=== PATIENT | male | born 1940 | race Caucasian/White ===

== ENCOUNTER 2017-05-10 10:57 | Emergency (ER) | payer MEDICARE, MEDICAID ==
[2017-05-10 11:13] VITALS: BP 166/79
[2017-05-10] MEDS ORDERED: Lactated Ringers 1,000 ML IV SCH (11:45)
[2017-05-10] MEDS ORDERED: Sodium Chloride 0.9% 10 ML Syringe FLUSH PRN (11:45)
--- NOTE | 2017-05-10 11:49 | EDM.PDOC ---
ED HPI GENERAL MEDICAL PROBLEM - General Chief Complaint: ENT Problem Stated Complaint: THROAT ISSUES Time Seen by Provider: 05/10/17 11:40 Source of Information: Reports: Patient, RN Notes Reviewed History Limitations: Reports: No Limitations - History of Present Illness INITIAL COMMENTS - FREE TEXT/NARRATIVE: 77-year-old gentleman presents to the emergency department today with complaint of difficulty swallowing, he has had ongoing pain for the last month it has progressively gotten worse. He believes he accidentally swallowed a chicken bone about one month ago was caught in his throat took some bread which did improve it however one week ago he dislodged a ball of what he describes as thick purulent material that did contain a bone he has coughed up some blood as well, complains of chills at night - Related Data Allergies Allergy/AdvReac Type Severity Reaction Status Date / Time No Known Allergies Allergy Verified 12/17/14 11:49 Home Meds: Home Meds Furosemide 20 mg PO DAILY 08/08/14 [History] Lisinopril 40 mg PO DAILY 08/08/14 [History] Potassium Chloride 10 meq PO DAILY 08/08/14 [History] Simvastatin 40 mg PO BEDTIME 08/08/14 [History] amLODIPine Besylate [Amlodipine Besylate] 10 mg PO DAILY 08/08/14 [History] guanFACINE HCl [Guanfacine HCl] 2 mg PO DAILY 08/08/14 [History] Past Medical History Other Musculoskeletal History: cracked top vertebrate as child - Past Surgical History Other HEENT Surgeries/Procedures: eyelids done Social & Family History - Tobacco Use Smoking Status *Q: Never Smoker Second Hand Smoke Exposure: No - Recreational Drug Use Recreational Drug Use: No ED ROS GENERAL - Review of Systems Review Of Systems: See Below Constitutional: Reports: Chills HEENT: Reports: Throat Pain, Throat Swelling Respiratory: Reports: No Symptoms Cardiovascular: Reports: No Symptoms GI/Abdominal: Reports: No Symptoms : Reports: No Symptoms Musculoskeletal: Reports: No Symptoms Skin: Reports: No Symptoms Neurological: Reports: No Symptoms ED EXAM, GENERAL - Physical Exam Exam: See Below Exam Limited By: No Limitations General Appearance: Alert, WD/WN, No Apparent Distress Eye Exam: Bilateral Eye: Normal Inspection Ears: Normal External Exam, Normal Canal, Hearing Grossly Normal, Normal TMs Nose: Normal Inspection, Normal Mucosa, No Blood Throat/Mouth: Normal Inspection, Normal Lips, Normal Teeth, Normal Gums, Normal Oropharynx, Normal Voice, No Airway Compromise Head: Atraumatic, Normocephalic Neck: Normal Inspection, Supple, Non-Tender, Full Range of Motion Respiratory/Chest: No Respiratory Distress, Lungs Clear, Normal Breath Sounds, No Accessory Muscle Use Cardiovascular: Regular Rate, Rhythm, No Murmur Course - Vital Signs Last Recorded V/S: Last Vital Signs Temp 96.9 F 05/10/17 11:23 Pulse 92 05/10/17 11:23 Resp 16 05/10/17 11:23 BP 166/79 H 05/10/17 11:23 Pulse Ox 95 05/10/17 11:23 - Orders/Labs/Meds Orders: Active Orders 24 hr Category Date Time Status Peripheral IV Care [RC] . DIRECTED Care 05/10/17 11:46 Active Soft Tissue Neck w Cont [CT] Stat Exams 05/10/17 11:46 Taken Iopamidol [Isovue-300 (61%)] Med 05/10/17 11:52 Active 100 ml IV . DIRECTED PRN Lactated Ringers [Ringers, Lactated] 1,000 ml Med 05/10/17 11:45 Active IV ASDIRECTED Sodium Chloride 0.9% [Normal Saline] 74 ml Med 05/10/17 12:00 Active IV ASDIRECTED Sodium Chloride 0.9% [Saline Flush] Med 05/10/17 11:45 Active 10 ml FLUSH ASDIRECTED PRN Peripheral IV Insertion Adult [OM.PC] Stat Oth 05/10/17 11:45 Ordered Medication Orders Lactated Ringer's (Ringers, Lactated) 1,000 mls @ 500 mls/hr IV ASDIRECTED MICHAEL Last Admin: 05/10/17 12:49 Dose: 500 mls/hr Sodium Chloride (Normal Saline) 74 mls @ 3 mls/sec IV ASDIRECTED MICHAEL Last Admin: 05/10/17 12:34 Dose: 3 mls/sec Iopamidol (Isovue-300 (61%)) 100 ml IV . DIRECTED PRN PRN Reason: RADIOLOGY EXAM Stop: 05/11/17 11:53 Last Admin: 05/10/17 12:34 Dose: 100 ml Sodium Chloride (Saline Flush) 10 ml FLUSH ASDIRECTED PRN PRN Reason: Keep Vein Open Last Admin: 05/10/17 12:49 Dose: 10 ml Labs: Laboratory Tests 05/10/17 05/10/17 05/10/17 Range/Units 11:45 11:45 11:45 WBC 8.7 (4.5-11.0) K/uL RBC 5.03 (4.30-5.90) M/uL Hgb 15.6 H (12.0-15.0) g/dL Hct 45.4 (40.0-54.0) % MCV 90 (80-98) fL MCH 31 (27-31) pg MCHC 34 (32-36) % Plt Count 239 (150-400) K/uL Neut % (Auto) 59 (36-66) % Lymph % (Auto) 30 (24-44) % Haakon % (Auto) 9 H (2-6) % Eos % (Auto) 2 (2-4) % Baso % (Auto) 0 (0-1) % Sodium 140 (140-148) mmol/L Potassium 4.0 (3.6-5.2) mmol/L Chloride 103 (100-108) mmol/L Carbon Dioxide 28 (21-32) mmol/L Anion Gap 9.3 (5.0-14.0) mmol/L BUN 16 (7-18) mg/dL Creatinine 1.2 (0.8-1.3) mg/dL Est Cr Clr Drug Dosing 49.08 mL/min Estimated GFR (MDRD) 59 L (>60) Glucose 119 H (74-106) mg/dL Lactic Acid 1.3 (0.4-2.0) mmol/L Calcium 9.5 (8.5-10.1) mg/dL Total Bilirubin 0.4 (0.2-1.0) mg/dL AST 28 (15-37) U/L ALT 58 (12-78) U/L Alkaline Phosphatase 77 (46-116) U/L C-Reactive Protein 0.00 (0.0-0.3) mg/dL Total Protein 8.2 (6.4-8.2) g/dL Albumin 4.3 (3.4-5.0) g/dL Globulin 3.9 H (2.3-3.5) g/dL Albumin/Globulin Ratio 1.1 L (1.2-2.2) TSH, Ultra Sensitive 3.990 H (0.358-3.740) uIU/mL Meds: Medications Generic Name Dose Route Start Last Admin Trade Name Nathanael PRN Reason Stop Dose Admin Lactated Ringer's 1,000 mls @ 500 mls/hr 05/10/17 11:45 05/10/17 12:49 Ringers, Lactated IV 500 mls/hr ASDIRECTED MICHAEL Administration Sodium Chloride 74 mls @ 3 mls/sec 05/10/17 12:00 05/10/17 12:34 Normal Saline IV 3 mls/sec ASDIRECTED MICHAEL Administration Iopamidol 100 ml 05/10/17 11:52 05/10/17 12:34 Isovue-300 (61%) IV 05/11/17 11:53 100 ml . DIRECTED PRN Administration RADIOLOGY EXAM Sodium Chloride 10 ml 05/10/17 11:45 05/10/17 12:49 Saline Flush FLUSH 10 ml ASDIRECTED PRN Administration Keep Vein Open Departure - Departure Time of Disposition: 13:30 Disposition: Home, Self-Care 01 Condition: Good Clinical Impression: Sore throat - Discharge Information Referrals: Nico Currie MD [Primary Care Provider] - Forms: ED Department Discharge Additional Instructions: Please follow-up with your primary care provider next week for further evaluation with possible referral to ear nose and throat, call return to the emergency department worsening of symptoms - My Orders Last 24 Hours: My Active Orders 05/10/17 11:45 Lactated Ringers [Ringers, Lactated] 1,000 ml IV ASDIRECTED Sodium Chloride 0.9% [Saline Flush] 10 ml FLUSH ASDIRECTED PRN Peripheral IV Insertion Adult [OM.PC] Stat 05/10/17 11:46 Peripheral IV Care [RC] . DIRECTED Soft Tissue Neck w Cont [CT] Stat 05/10/17 11:52 Iopamidol [Isovue-300 (61%)] 100 ml IV . DIRECTED PRN 05/10/17 12:00 Sodium Chloride 0.9% [Normal Saline] 74 ml IV ASDIRECTED - Assessment/Plan Last 24 Hours: My Active Orders 05/10/17 11:45 Lactated Ringers [Ringers, Lactated] 1,000 ml IV ASDIRECTED Sodium Chloride 0.9% [Saline Flush] 10 ml FLUSH ASDIRECTED PRN Peripheral IV Insertion Adult [OM.PC] Stat 05/10/17 11:46 Peripheral IV Care [RC] . DIRECTED Soft Tissue Neck w Cont [CT] Stat 05/10/17 11:52 Iopamidol [Isovue-300 (61%)] 100 ml IV . DIRECTED PRN 05/10/17 12:00 Sodium Chloride 0.9% [Normal Saline] 74 ml IV ASDIRECTED Plan: Assessment Acuity = acute Site and laterality = throat pain and swelling Etiology = probably related to foreign body with post inflammation Manifestations = none Location of injury = Home Lab values = CBC, BMP unremarkable CT scan: Impression: 1. A 1-2 mm hyperdense focus in the inferior left palatine tonsil may be secondary to prior inflammation versus tiny residual foreign body. 2. There is no airway narrowing. 3. No air in the parapharyngeal or paraesophageal soft tissues to suggest perforation. 4. No fluid collections identified. Plan Recommend symptomatic care, follow up with primary care in the next 3-5 days for reevaluation with possible referral to ear nose and throat for further evaluation This note was dictated using [employer] voice recognition software please call with any questions on syntax or juan.
[2017-05-10] MEDS ORDERED: Iopamidol 612 MG/ML 100 ML Bottle IV PRN (11:52)
== END 2017-05-10 13:42 | disposition home or self-care (01) ==
LOC: JP.ED 10:57
DX: J02.9 Acute pharyngitis, unspecified (principal); Z79.899 Other long term (current) drug therapy
CPT/HCPCS: 36415; 70491; 80053; 83605; 84443; 85025; 86140; 96360; 96361; 99283; 99284; J7030; J7050; J7120; Q9967

== ENCOUNTER 2017-05-23 07:17 | Emergency (ER) | payer MEDICAID, MEDICARE ==
[2017-05-23 07:58] VITALS: BP 214/86
--- NOTE | 2017-05-23 08:07 | EDM.PDOC ---
ED HPI GENERAL MEDICAL PROBLEM - General Chief Complaint: Abdominal Pain Stated Complaint: ABDOMINAL PAIN Time Seen by Provider: 05/23/17 07:58 Source of Information: Reports: Patient, Family, RN Notes Reviewed History Limitations: Reports: No Limitations - History of Present Illness INITIAL COMMENTS - FREE TEXT/NARRATIVE: 77-year-old gentleman presents to the emergency department today with complaint of abdominal pain, he states the pain started last night will wax and wane at this moment he is pain-free, he had pain similar to this about a month and a half ago which resolved on its own. He denies any flatus use positive bowel movement last night does feel nauseated with the pain no shortness of breath no chest pain. No history of abdominal surgeries - Related Data Allergies Allergy/AdvReac Type Severity Reaction Status Date / Time No Known Allergies Allergy Verified 12/17/14 11:49 Home Meds: Home Meds Furosemide 20 mg PO DAILY 08/08/14 [History] Lisinopril 40 mg PO DAILY 08/08/14 [History] Potassium Chloride 10 meq PO DAILY 08/08/14 [History] Simvastatin 40 mg PO BEDTIME 08/08/14 [History] amLODIPine Besylate [Amlodipine Besylate] 10 mg PO DAILY 08/08/14 [History] guanFACINE HCl [Guanfacine HCl] 2 mg PO DAILY 08/08/14 [History] Past Medical History Other Musculoskeletal History: cracked top vertebrate as child - Past Surgical History Other HEENT Surgeries/Procedures: eyelids done Social & Family History - Tobacco Use Smoking Status *Q: Never Smoker Second Hand Smoke Exposure: No - Recreational Drug Use Recreational Drug Use: No ED ROS GENERAL - Review of Systems Review Of Systems: See Below Constitutional: Reports: No Symptoms HEENT: Reports: No Symptoms Respiratory: Reports: No Symptoms Cardiovascular: Reports: No Symptoms GI/Abdominal: Reports: Abdominal Pain, Nausea. Denies: Flatus, Vomiting : Reports: No Symptoms Musculoskeletal: Reports: No Symptoms Skin: Reports: No Symptoms Neurological: Reports: No Symptoms ED EXAM, GI/ABD - Physical Exam Exam: See Below Text/Narrative:: General: Male, not in any distress, alert and oriented x3 HEENT: head is atraumatic normocephalic, eyes pupils equal round reactive to light, sclera clear no conjunctivitis appreciated. Ears tympanic membranes clear and escamilla landmarks and light reflex are present bilaterally canals are clear. Nose no septal deviation, nares are clear, no blood present. Mouth mucosa is moist and pink no erythema or exudate noted in soft palate, tongue is midline uvula is midline, dentures in place. Neck: Supple no thyromegaly no tracheal deviation. Nodes: Cervical nodes subclavicular nodes nontender no palpable lymphadenopathy noted. Lungs: clear to auscultation bilaterally with symmetrical respirations, no adventitious noise appreciated. CV: Regular rate and rhythm S1 and S2 appreciated no murmurs rubs or gallops noted. Abdomen: Soft, obese, nontender, no palpable masses or organomegaly appreciated , no distention no guarding bowel sounds are present, . Neuro: Cranial nerves II through XII grossly intact Skin: Warm and dry, intact Extremities: No lower extremity edema appreciated, Course - Vital Signs Last Recorded V/S: Last Vital Signs Temp 96.1 F 05/23/17 07:41 Pulse 82 05/23/17 07:41 Resp 18 05/23/17 07:41 BP 214/86 H 05/23/17 07:41 Pulse Ox 95 05/23/17 07:41 - Orders/Labs/Meds Orders: Active Orders 24 hr Category Date Time Status Abdomen 1V Upright [CR] Stat Exams 05/23/17 08:53 Taken Labs: Laboratory Tests 05/23/17 05/23/17 05/23/17 Range/Units 08:10 08:10 08:10 WBC 8.4 (4.5-11.0) K/uL RBC 4.67 (4.30-5.90) M/uL Hgb 14.5 (12.0-15.0) g/dL Hct 42.6 (40.0-54.0) % MCV 91 (80-98) fL MCH 31 (27-31) pg MCHC 34 (32-36) % Plt Count 233 (150-400) K/uL Neut % (Auto) 58 (36-66) % Lymph % (Auto) 30 (24-44) % Sac % (Auto) 9 H (2-6) % Eos % (Auto) 2 (2-4) % Baso % (Auto) 0 (0-1) % Sodium 141 (140-148) mmol/L Potassium 4.6 (3.6-5.2) mmol/L Chloride 103 (100-108) mmol/L Carbon Dioxide 27 (21-32) mmol/L Anion Gap 11.2 (5.0-14.0) mmol/L BUN 20 H (7-18) mg/dL Creatinine 1.2 (0.8-1.3) mg/dL Est Cr Clr Drug Dosing 49.08 mL/min Estimated GFR (MDRD) 59 L (>60) Glucose 118 H (74-106) mg/dL Lactic Acid 1.6 (0.4-2.0) mmol/L Calcium 9.3 (8.5-10.1) mg/dL Total Bilirubin 0.4 (0.2-1.0) mg/dL AST 21 (15-37) U/L ALT 45 (12-78) U/L Alkaline Phosphatase 88 (46-116) U/L Troponin I < 0.017 (0.000-0.056) ng/mL Total Protein 7.8 (6.4-8.2) g/dL Albumin 4.4 (3.4-5.0) g/dL Globulin 3.4 (2.3-3.5) g/dL Albumin/Globulin Ratio 1.3 (1.2-2.2) Lipase 90 (73-393) U/L Departure - Departure Time of Disposition: 09:29 Disposition: Home, Self-Care 01 Condition: Good Clinical Impression: Functional constipation - Discharge Information Referrals: Nico Currie MD [Primary Care Provider] - Forms: ED Department Discharge Additional Instructions: Try the MiraLAX one capful per day until loose stools, Please followup with your primary care provider in 3-5 days if not better, please call return to the emergency department with worsening of symptoms. - My Orders Last 24 Hours: My Active Orders 05/23/17 08:53 Abdomen 1V Upright [CR] Stat - Assessment/Plan Last 24 Hours: My Active Orders 05/23/17 08:53 Abdomen 1V Upright [CR] Stat Plan: Assessment Acuity = acute Site and laterality = functional constipation Etiology = slow transit time Manifestations = none Location of injury = Home Lab values = CBC, CMP, troponin all negative x-ray does show large amount of stool and gas official read radiology is pending Plan Recommend use of MiraLAX daily, follow-up primary care 3-5 days for reevaluation This note was dictated using [employer] voice recognition software please call with any questions on syntax or juan.
--- NOTE | 2017-05-25 09:21 | CR ---
Abdomen 1V Upright INDICATION: pain FINDINGS: Normal bowel gas pattern. No evidence for small bowel obstruction or free air. Scattered st ool and gas throughout normal caliber colon. Degenerative changes in the spine.
== END 2017-05-23 10:01 | disposition home or self-care (01) ==
LOC: JP.ED 07:17
DX: K59.04 Chronic idiopathic constipation (principal); Z79.899 Other long term (current) drug therapy
CPT/HCPCS: 36415; 74018; 74018-26; 80053; 83605; 83690; 84484; 85025; 99284

== ENCOUNTER 2020-11-29 07:12 | Day surgery (SDC) | payer MEDICARE ==
[2020-11-29] MEDS ORDERED: Dextrose 5%-Lactated Ringers 1,000 ML IV SCH (07:30)
[2020-11-29] MEDS ORDERED: Propofol 200 MG/20 ML SDV ONE (08:19)
[2020-11-29] MEDS ORDERED: fentaNYL 100 MCG/2 ML SDV ONE (08:19)
[2020-11-29 09:27] VITALS: PULSE 60
[2020-11-29 10:14] VITALS: BP 140/68
--- NOTE | 2020-12-14 12:29 | OR ---
DATE OF PROCEDURE: 11/29/2020 SURGEON: Augie Bhardwaj MD PREOPERATIVE DIAGNOSES: 1. 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 2. History of gastroesophageal reflux disease. POSTOPERATIVE DIAGNOSES: Upper endoscopy showin. No gross inflammation of the laryngopharynx but a noticeably elongated right pyriform sinus. 2. 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 3. Mild antral gastritis and proximal duodenitis. OPERATIVE PROCEDURE: Esophagogastroduodenoscopy with: 1. Biopsy of esophagogastric junction for histologic evaluation. 2. Biopsies of antrum for CLOtest. ANESTHESIA: IV sedation. INDICATION FOR PROCEDURE: This is an 80-year-old male, presenting with some laryngopharyngeal dysphagia and a sense of chronic irritation on the right side of the pharynx. He does have a longstanding history of gastroesophageal reflux disease and has been on Protonix long-term. Plan is to proceed with upper GI endoscopy with biopsies as indicated. Potential risks including bleeding and perforation were discussed, and the patient wishes to proceed. DETAILS OF PROCEDURE: The patient was taken to the operating room and placed in a left lateral decubitus position. IV sedation was administered, after which the upper GI endoscope was passed orally through the length of the esophagus into the stomach with retroflexion view of the fundus, thereafter through the pyloric channel to the junction of the third and fourth portions of the duodenum. Findings included no gross inflammation within the laryngopharynx. It was notable, however, that the patient had a quite elongated right pyriform sinus that this appeared to be somewhat unusual or abnormal, was confirmed by on review of the endoscopic findings. Within the esophagus, there was some moderate inflammation at the distal esophagus with a small hiatal hernia. 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 No plaquing or stricturing were noted. Within the stomach, there was some mild patchy redness in the antrum which extended into the duodenal bulb. No erosions or ulcers were seen beyond the duodenal bulb where findings normalized. At this point, biopsies were taken from the antrum and sent for CLOtest for H pylori and multiple biopsies were then obtained from esophagogastric junction and sent for histologic evaluation. Minimal bleeding from the biopsy sites was seen and the procedure was then concluded. At this point, the plan will be to have the patient continue the Protonix. We will also obtain an x-ray swallow study with speech pathology consultation to evaluate the sense of irritation and what appeared to be somewhat elongated right pyriform sinus. The patient will have to see Tova Maria PA-C, a few days after the speech pathology consult has been obtained. Augie Bhardwaj MD /[id number]
== END 2020-11-29 10:10 | disposition home or self-care (01) ==
LOC: JP.SDS 07:12
PROVIDERS: ATTEND Surgery
DX: K20.0 Eosinophilic esophagitis (principal); K21.9 Gastro-esophageal reflux disease without esophagitis; K29.90 Gastroduodenitis, unspecified, without bleeding
CPT/HCPCS: 87081; 88305; J2704; J3010; J7121

== ENCOUNTER 2024-05-18 08:56 | Emergency (ER) | payer MEDICARE ==
[2024-05-18] MEDS: Carbamide Peroxide 6.5% Otic Soln 15 ML Bottle EARRT ONE (10:16)
[2024-05-18 11:48] VITALS: BP 156/56; PULSE 98
== END 2024-05-18 11:43 | disposition home or self-care (01) ==
LOC: JP.ED 08:56
DX: H61.21 Impacted cerumen, right ear (principal); I10 Essential (primary) hypertension; K21.9 Gastro-esophageal reflux disease without esophagitis; E78.00 Pure hypercholesterolemia, unspecified; Z79.899 Other long term (current) drug therapy; Z79.82 Long term (current) use of aspirin
CPT/HCPCS: 99282; A9270; 99283